=== PATIENT | female | born 1985 | race African-American/Black ===

== ENCOUNTER 2023-11-16 07:39 | Emergency (ER) | payer OTHER ==
[2023-11-16 07:51] VITALS: BP 127/82; PULSE 66; RESP 15; TEMP 96.9; BMI 33.9
[2023-11-16] MEDS: ACETAMINOPHEN 500 MG TABLET (FP) PO ONE (09:00)
[2023-11-16] MEDS ORDERED: DIPHTH,PERTUSS(ACELL),TET 0.5 ML DISP.SYRIN IM ONE (09:03)
[2023-11-16] MEDS ORDERED: ACETAMINOPHEN 325 MG TABLET (FP) ONE (09:03)
[2023-11-16] MEDS: DIPHTH,PERTUSS(ACELL),TET 0.5 ML DISP.SYRIN IM ONE (09:20)
== END 2023-11-16 09:00 | disposition home or self-care (01) ==
LOC: JERFT 07:39 → JER 07:39 → JERFT 09:00
PROC: 3E0234Z Introduction of Serum, Toxoid and Vaccine into Muscle, Percutaneous Approach (ICD-10-PCS; principal; 2023-11-16)
DX: S00.01XA Abrasion of scalp, initial encounter (principal); W22.8XXA Striking against or struck by other objects, initial encounter; Z23 Encounter for immunization
CPT/HCPCS: 90471; 90715; 99283-25

== ENCOUNTER 2024-12-16 19:49 | Emergency (ER) | payer OTHER ==
[2024-12-16 20:02] VITALS: BP 129/80; PULSE 71; RESP 18; TEMP 98.1; BMI 32.9
[2024-12-16] MEDS ORDERED: LIDOCAINE 5% TOPICAL PATCH ONE (20:50)
[2024-12-16] MEDS ORDERED: KETOROLAC TROMETHAMINE 60 MG/2 ML VIAL ONE (20:50)
[2024-12-16] MEDS ORDERED: METHOCARBAMOL 500 MG TABLET ONE (20:50)
[2024-12-16] MEDS: LIDOCAINE 5% TOPICAL PATCH TP ONE (20:57)
[2024-12-16] MEDS: METHOCARBAMOL 500 MG TABLET PO ONE (20:58)
[2024-12-16] MEDS: KETOROLAC TROMETHAMINE 60 MG/2 ML VIAL IM ONE (20:59)
[2024-12-16] MEDS ORDERED: LIDOCAINE PATCH REMOVAL MC SCH (22:00)
== END 2024-12-16 21:41 | disposition home or self-care (01) ==
LOC: JER 19:49
PROC: 3E0233Z Introduction of Anti-inflammatory into Muscle, Percutaneous Approach (ICD-10-PCS; principal; 2024-12-16)
DX: M62.838 Other muscle spasm (principal); G62.9 Polyneuropathy, unspecified; M25.511 Pain in right shoulder; R20.0 Anesthesia of skin; R51.9 Headache, unspecified; X50.0XXA Overexertion from strenuous movement or load, initial encounter; Y99.0 Civilian activity done for income or pay
CPT/HCPCS: 82962; 99284-25